=== PATIENT | female | born 1945 | race Caucasian/White ===

== ENCOUNTER 2016-10-07 12:37 | Emergency (ER) | payer MEDICARE, BC ==
[2016-10-07 13:11] LABS: Hematocrit 37.3 % (37.0-47.0); Hemoglobin 12.6 gm/dL (12.5-16.0); Mean Cell Volume 87.4 fl (78-100); Mean Corpuscular Hemoglobin 29.5 pg (27-31); Mean Corpuscular Hgb Conc 33.8 g/dl (32-36); Mean Platelet Volume 9.9 fl (6.0-9.5); Neutrophil # 2.1 K/mm3 (1.3-6.0); Neutrophil % 59.5 % (42-75.0); Platelet Count 192 K/mm3 (150-450); Red Blood Count 4.27 M/mm3 (4.2-5.4); Red Cell Distribution Width 13.6 % (11.5-14.0); White Blood Count 3.5 K/mm3 (4.0-10.5)
[2016-10-07 13:23] LABS: Albumin * 3.9 gm/dl (3.4-5.0); Anion Gap 16.8 mmol/L (6.8-13.8); BUN/Creatinine Ratio 21.8 (9.0-21.6); Bilirubin, Total 0.3 mg/dL (0.0-1.1); Ca. Corrected For Albumin 8.8 mg/dL (8.4-10.2); Carbon Dioxide 23.3 mmol/L (24-32.6); Potassium 4.1 mmol/L (3.4-4.6); Total Protein 7.7 gm/dL (6.2-8.2)
[2016-10-07] MEDS ORDERED: NORMAL SALINE 1,000 ML IV ONE (13:47)
[2016-10-07 13:57] VITALS: BP 143/83
--- OUTSIDE RECORDS SUMMARY | 2016-10-07 13:57 | XMS REPORT | Continuity of Care Document ---
:1945 Author Organization [facility] [place] [address] Care Team Providers Name Role Phone Mirian Castro Primary Care Provider [phone] Source Comments This disclosure is being made pursuant to the [employer] program and maynot contain all information available regarding this patient.[facility] Active Allergies and Adverse Reactions Allergen Noted Date Severity Reactions Comments Iodinated Diagnostic Agents 07/19/2014 Other (See Comments) Metronidazole 07/19/2014 Other (See Comments) Penicillins 07/19/2014 Other (See Comments) Sulfa Antibiotics 07/19/2014 Other (See Comments) Current Medications Be aware that medications may not be up to date as of this document. Alwaysverify current medications with the patient. Prescription Sig. Disp. Refills Start Date End Date Status ALPRAZolam (XANAX) 0.5 MG Take 0.5 mg by Active tablet mouth. amLODIPine (NORVASC) 5 MG Take 5 mg by Active tablet mouth. diphenoxylate-atropine Take by mouth. 01/18/2014 Active (LOMOTIL) 2.5-0.025 MG per tablet ferrous sulfate 325 (65 Take by mouth. Active FE) MG tablet fluticasone-salmeterol Inhale into the Active (ADVAIR DISKUS) 250-50 lungs. MCG/DOSE AEPB Levothyroxine Sodium 75 Take 75 mcg by Active MCG CAPS mouth. losartan (COZAAR) 25 MG Take 25 mg by Active tablet mouth. naproxen (NAPROSYN) 500 MG Take 500 mg by Active tablet mouth. OMEGA-3 FATTY Take by mouth. Active ACIDS-VITAMIN E PO omeprazole (PRILOSEC) 20 Take 20 mg by Active MG capsule mouth. pioglitazone (ACTOS) 15 MG Take 15 mg by Active tablet mouth. risedronate (ACTONEL) 35 Take 35 mg by Active MG tablet mouth. rosuvastatin (CRESTOR) 10 Take 10 mg by Active MG tablet mouth. zolpidem (AMBIEN) 10 MG Take 10 mg by 02/02/2010 Active tablet mouth. Active Problems Problem Noted Date History of malignant neoplasm of kidney 09/22/2015 Acquired absence of kidney 09/22/2015 Diarrhea 08/08/2014 Stress 08/08/2014 Anxiety 08/08/2014 Most Recent Encounters Date Type Specialty Providers Description 07/18/2016 Data Import Social History Tobacco Use Types Packs/Day Years Used Date Never Assessed Last Filed Vital Signs Vital Sign Reading Time Taken Blood Pressure 151/89 05/21/2016 11:23 AM CDT Pulse 67 05/21/2016 11:22 AM CDT Temperature 37.1 C (98.7 F) 05/21/2016 11:22 AM CDT Respiratory Rate 20 05/21/2016 11:22 AM CDT Height 1.632 m (5' 4.25") 11/16/2015 11:00 AM CDT Weight 108.92 kg (240 lb 2 oz) 05/21/2016 11:22 AM CDT Body Mass Index 40.89 05/21/2016 11:22 AM CDT Oxygen Saturation 99% 05/21/2016 11:22 AM CDT Plan of Care Date Type Specialty Providers Description 11/12/2016 Appointment Radiology Pietro Garza MD [facility] [address] [phone] (Fax) 11/19/2016 Appointment Oncology 11/19/2016 Appointment Oncology Pietro Garza MD [facility] [address] [phone] (Fax) Health Maintenance Due Date Last Done Comments Lab-Lipids 1945 LAB-HgA1C 1951 Eye (Ophthalmology) Exam 1956 Foot Exam 1956 Lab-Urine Microalbumin 1956 Hepatitis C Screening 1964 Tetanus/Pertussis (1 - Tdap) 1965 Well Adult Visit 1996 Zoster Vaccine 60+ 2006 Bone Density 2011 Pneumococcal Low/Medium Risk 65+ (1 of 2 - PCV13) 2011 Influenza Immunization (#1) 2016 Mammogram 06/14/2017 06/14/2015 Colonoscopy 05/08/2019 05/08/2009 Results from Last 3 Months Not on file
[2016-10-07] MEDS ORDERED: METHYLPREDNISOLONE SOD SUCC/PF 125 MG/2 ML VIAL IV ONE (14:11)
[2016-10-07] MEDS ORDERED: DOXYCYCLINE HYCLATE 100 MG TABLET PO ONE (14:12)
[2016-10-07] MEDS ORDERED: METHYLPREDNISOLONE SOD SUCC/PF 125 MG/2 ML VIAL ONE (14:29)
[2016-10-07] MEDS ORDERED: DOXYCYCLINE HYCLATE 100 MG TABLET ONE (14:30)
--- NOTE | 2016-10-07 14:56 | ERNOTE ---
Date of Service: 10/07/16 Time Seen by Provider: 10/07/16 13:16 Stated Complaint: PNEUMONIA Presenting Symptoms:: cough Source: patient, RN notes reviewed Exam Limitations: no limitations Immunizations: IMMUNIZATION HX Immunizations Up to Date Yes History of Influenza Vaccine Yes Hx Pneumococcal Vaccination No Allergies/Adverse Reactions: Allergies Iodinated Contrast Media - Oral and [Iodinated Contrast Media - IV Dye] Allergy (Mild, Verified 10/07/16 12:57) HIVES, SKIN PEELS metronidazole [From Flagyl] Adverse Reaction (Mild, Verified 10/07/16 12:57) RASH nitrofurantoin Adverse Reaction (Mild, Verified 10/07/16 12:57) NAUSEA, DIARRHEA, CHILLS Penicillins Adverse Reaction (Mild, Verified 10/07/16 12:57) RASH Sulfa (Sulfonamide Antibiotics) Adverse Reaction (Mild, Verified 10/07/16 12:57) RASH Home Medications: HOME MEDICATIONS Ferrous Sulfate [Iron] 325 mg PO DAILY 01/18/13 [Last Taken Unknown] Pioglitazone HCl [Actos] 15 mg PO DAILY 01/18/13 [Last Taken Unknown] Rosuvastatin Calcium [Crestor] 10 mg PO DAILY 01/18/13 [Last Taken Unknown] ALPRAZolam [Xanax] 0.5 mg PO TID PRN 06/23/15 [Last Taken Unknown] Diphenoxylate HCl/Atropine [Lomotil Tablet] 2 each PO DAILY 06/23/15 [Last Taken Unknown] Fluticasone/Salmeterol [Advair 250-50 Diskus] 1 puff IH BID 06/23/15 [Last Taken Unknown] Levothyroxine Sodium [Synthroid] 88 mcg PO DAILY 06/23/15 [Last Taken Unknown] Losartan Potassium [Cozaar] 25 mg PO DAILY 06/23/15 [Last Taken Unknown] Naproxen [Naprosyn] 500 mg PO BID 06/23/15 [Last Taken Unknown] [place]-3 Fatty Acids/Fish Oil [Fish Oil 1,000 mg Capsule] 1 each PO DAILY [Last Taken Unknown] Omeprazole Magnesium [Prilosec Otc] 20 mg PO DAILY 06/23/15 [Last Taken Unknown] Zolpidem Tartrate [Ambien] 10 mg PO HS 06/23/15 [Last Taken Unknown] HYDROcodone/ACETAMINOPHEN [[place] 5-325] 1 tab PO Q4H PRN 07/07/15 [Last Taken Unknown] Multivitamin [Poly-Vitamin] 1 each PO DAILY 07/07/15 [Last Taken Unknown] Albuterol Sulfate/Ipratropium [Duoneb 2.5-0.5MG/3ML Soln] 3 ml IH Q6H PRN #60 nebu 10/07/16 [Last Taken Unknown] Doxycycline Monohydrate 100 mg PO BID #20 tablet 10/07/16 [Last Taken Unknown] Promethazine HCl/Codeine [Prometh-Codein 6.25-10 mg/5 ml] 5 ml PO Q4H PRN #120 ml 10/07/16 [Last Taken Unknown] predniSONE [Prednisone] 2 tab PO DAILY #14 tab 10/07/16 [Last Taken Unknown] - History of Present Ilness Narrative: 71 y/o female to the ED with her by private vehicle for a cough and chest tightness that began 4 days ago. She began feeling worse this morning and reports feeling weak and shaky. She has had sinus congestion and pain. She reports being unable to sleep d/t her cough. She did a Duoneb treatment this morning without improvement. Date (Duration): 10/03/16 Timing: getting worse Frequency/Possible Cause: Reports: illness exposure Modifying Factors - Improves: Reports: rest Modifying Factors - Worsens: Reports: activity, lying down Associated Symptoms: Reports: chest pain/soreness, cough, shortness of breath, facial pain, nasal congestion, nasal drainage, lightheadedness, earache, headache. Denies: dizziness, sore throat Prior Treatment: Denies: recently seen, currently on antibiotics Review of Systems - Review of Systems Constitutional: Present: chills, fatigue, malaise. Absent: fever EYE: Present: no symptoms reported ENT: Present: See HPI Respiratory: Present: See HPI Cardiology: Present: See HPI Gastrointestinal/Abdominal: Present: diarrhea. Absent: nausea, vomiting, abdominal pain, eating less, drinking less Genitourinary: Present: no symptoms reported Musculoskeletal: Absent: muscle pain, joint pain Skin: Absent: rash, lesions Neurological: Present: See HPI Endocrine: Present: no symptoms reported Hematologic/Lymphatic: Present: no symptoms reported Psych: Present: anxiety - Patient's Past Medical History Patient History - Medical: Diabetes Type 2, Hypothyroidism, Osteoarthritis, Osteoporosis, Other Patient History - Cardiac/Respiratory: Asthma, Hypertension, Hyperlipidemia Patient History - Cancer: Kidney Patient History - Surgical Procedures: Colonoscopy, Hysterectomy, Other Patient History - Other: None LMP (females 10-50): Menopausal - Family History Mother Family History - Medical: Family History - Cardiac/Respiratory: Other Father Family History - Medical: Family History - Cardiac/Respiratory: Myocardial Infarction Brother Family History - Medical: Family History - Cardiac/Respiratory: No pertinent hx Sister Family History - Medical: No pertinent hx Family History - Cardiac/Respiratory: No pertinent hx - Social History Living Situations: spouse Abuse History: No History of abuse Psych History: Hx of Anxiety, Current tx/ever been on anti-depressants or anti- anxiety meds Smoking Status: Never smoker Alcohol Use: none Drug Use: none - Immunizations Immunizations Up to Date: Yes Hx Pneumococcal Vaccination: No History of Influenza Vaccine: Yes Physical Exam - Physical Exam General Appearance: Present: wd/wn, alert, mild distress, anxious Eye Exam: Normal inspection: bilateral Ears, Nose, Throat: Present: abnormal TM (R), abnormal TM (L) - TM's dull bilaterally, nasal congestion, sinus pain/drainage. Absent: pharyngeal erythema , dry mucous membranes Neck: Present: normal inspection, nontender, supple Respiratory: Present: no respiratory distress, lungs clear, accessory muscle use - mild, expiration (prolonged) Cardiovascular/Chest: Present: regular rate, rhythm, no murmur, normal peripheral pulses Extremity Exam: Present: normal inspection, no edema Neurological Exam: Present: alert, oriented, normal mood/affect Skin Exam: Present: normal color, warm/dry ED Progress - Results and Orders Patient's Lab Results:: I have reviewed the patient's lab results. - Vital Signs Patient's Vital Signs:: I have reviewed the patient's vital signs. Vital Signs: Vital Signs 10/07/16 10/07/16 12:53 13:56 Temperature 37.0 C Pulse Rate 78 95 Respiratory 20 18 Rate Blood Pressure 154/83 143/83 O2 Sat by Pulse 97 95 Oximetry - X-Ray X-Ray #1 X-Ray: chest Interpretation: Reviewed by me X-ray Comments: FINDINGS: Chest PA Lateral * Calcified granuloma of the left lower lobe, stable. Normal lung volumes. No consolidation or mass. Mild central bronchial wall prominence suggested. No pneumothorax or pleural fluid collections. Cardiac and mediastinal silhouettes are normal. Trachea is in normal position. Bones show degenerative changes of the spine. IMPRESSION: 1. No focal acute cardiopulmonary finding. 2. Central bronchial wall prominence could be compatible with acute or chronic bronchitis or reactive airways disease. Clinical correlation is advised. Electronically signed by Javon Bradford M.D.. - Progress/Reassessment Chief Complaint: Upper Respiratory Symptoms Progress:: Improved Departure - Departure Clinical Impression: Dehydration, mild Sinusitis, acute Qualifiers: Sinusitis location: unspecified location Recurrence: not specified as recurrent Qualified Code(s): J01.90 - Acute sinusitis, unspecified Bronchitis, acute Qualifiers: Bronchitis organism: unspecified organism Qualified Code(s): J20.9 - Acute bronchitis, unspecified Disposition: Home self-care Condition: Stable Instructions: Sinusitis, Adult, [id number], Acute Bronchitis Referrals: Mirian Castro MD [Primary Care Provider] - Prescriptions: Albuterol Sulfate/Ipratropium [Duoneb 2.5-0.5MG/3ML Soln] 3 ml IH Q6H PRN #60 nebu PRN Reason: Wheezing Doxycycline Monohydrate 100 mg PO BID #20 tablet Promethazine HCl/Codeine [Prometh-Codein 6.25-10 mg/5 ml] 5 ml PO Q4H PRN #120 ml PRN Reason: Cough predniSONE [Prednisone] 2 tab PO DAILY #14 tab
== END 2016-10-07 15:27 | disposition home or self-care (01) ==
LOC: ER 12:37
DX: R05 Cough (principal); E86.0 Dehydration; J01.90 Acute sinusitis, unspecified; J20.9 Acute bronchitis, unspecified; Z85.528 Personal history of other malignant neoplasm of kidney

== ENCOUNTER 2018-06-08 11:17 | Observation (INO) | payer BC, MEDICARE ==
--- NOTE | 2018-06-08 11:38 | ERNOTE ---
Date of Service: 06/08/18 Time Seen by Provider: 06/08/18 11:38 Stated Complaint: URI Presenting Symptoms:: cough Source: patient Exam Limitations: no limitations Immunizations: IMMUNIZATION HX Immunizations Up to Date Yes History of Influenza Vaccine No Hx Pneumococcal Vaccination No Allergies/Adverse Reactions: Allergies alendronate sodium Allergy (Intermediate, Verified 06/08/18 11:27) swelling of the body Iodinated Contrast- Oral and IV Dye [Iodinated Contrast Media - IV Dye] Allergy (Mild, Verified 06/08/18 11:27) HIVES, SKIN PEELS shellfish derived Allergy (Unknown, Verified 06/08/18 11:27) Hives metronidazole [From Flagyl] Adverse Reaction (Mild, Verified 06/08/18 11:27) RASH nitrofurantoin Adverse Reaction (Mild, Verified 06/08/18 11:27) NAUSEA, DIARRHEA, CHILLS 07/2013 Penicillins Adverse Reaction (Mild, Verified 06/08/18 11:27) RASH Sulfa (Sulfonamide Antibiotics) Adverse Reaction (Mild, Verified 06/08/18 11:27) RASH tramadol Adverse Reaction (Unknown, Verified 06/08/18 11:27) hives Home Medications: HOME MEDICATIONS Ferrous Sulfate [Iron] 325 mg PO DAILY 01/18/13 [Last Taken Unknown] ALPRAZolam [Xanax] 0.5 mg PO TID PRN 06/23/15 [Last Taken Unknown] Levothyroxine Sodium [Synthroid] 88 mcg PO DAILY 06/23/15 [Last Taken Unknown] Losartan Potassium [Cozaar] 25 mg PO DAILY 06/23/15 [Last Taken Unknown] [place]-3 Fatty Acids/Fish Oil [Fish Oil 1,000 mg Capsule] 1 ea PO DAILY 06/23/15 [Last Taken Unknown] Albuterol Sulfate/Ipratropium [Duoneb 2.5-0.5MG/3ML Soln] 3 ml IH Q6H PRN #60 nebu 10/07/16 [Last Taken Unknown] blood sugar diagnostic strips See Dose Instructions .ROUTE .MEDSUPPLY #20 ea 02/06/18 [Last Taken Unknown] cholecalciferol (vitamin D3) 1,000 unit capsule 1,000 unit PO DAILY 02/06/18 [Last Taken Unknown] halobetasol propionate 0.05 % topical cream 1 applic TP BID 02/06/18 [Last Taken Unknown] mometasone-formoterol HFA 200 mcg-5 mcg/actuation aerosol inhaler 2 puff IH BID 02/06/18 [Last Taken Unknown] simvastatin 20 mg tablet 20 mg PO QPM 02/06/18 [Last Taken Unknown] naproxen 500 mg tablet 500 mg PO BID #60 tab 03/17/18 [Last Taken Unknown] zolpidem 10 mg tablet 10 mg PO HS #30 tab 03/17/18 [Last Taken Unknown] loperamide 2 mg capsule 2 mg PO Q1-4H PRN 04/02/18 [Last Taken Unknown] albuterol sulfate HFA 90 mcg/actuation aerosol inhaler 2 puff IH Q6H PRN #18 g 04/28/18 [Last Taken Unknown] - Pain Score Pain Score #1 Pain Score: 0 - History of Present Ilness Narrative: The patient is a 73 year old female who presents for dyspnea and cough which has been present since end of April. There are associated symptoms of fatigue, chills and vomiting. The patient denies pain. There are no alleviating factors. There are aggravating factors of activity. Previous treatments have included: recent treatment with Prednisone, azithromycin, inhaler and nebulizers without improvement . The past medical history includes: asthma, DM, HTN, hypothyroid, osteoarthritis, DJD and renal carcinoma with nephrectomy. The social history is negative. The patient has had no ill contacts. Patient states that she was previously evaluated in [facility] and treated with antibiotics and steroids without improvement. Patient had follow up appointment with with outpatient CXR which she was notified today was normal. Patient denies improvement following treatment and feels that something else is going on. Patient also reports hematoma vs mass to left upper extremity which she feels has increased due to level of discomfort. Patient awaiting follow up of MRI, managed by . Review of Systems - Review of Systems Constitutional: Present: fever, chills, fatigue EYE: Present: no symptoms reported ENT: Present: nose congestion, nasal drainage. Absent: ear pain, sore throat Respiratory: Present: shortness of breath, cough. Absent: wheezing Cardiology: Absent: chest pain Gastrointestinal/Abdominal: Present: nausea, vomiting, diarrhea. Absent: ab dominal pain Genitourinary: Present: no symptoms reported. Absent: dysuria Musculoskeletal: Present: back pain - chronic Skin: Present: no symptoms reported Neurological: Present: dizziness/light-headedness. Absent: headache Endocrine: Present: no symptoms reported Hematologic/Lymphatic: Present: no symptoms reported Psych: Present: no symptoms reported All Other Systems: All systems neg except as marked Medical History (Last Reviewed 06/08/18 @ 12:06 by GREGG Michaels) DJD (degenerative joint disease) of knee Onset Date: ~2017 Elbow pain Onset Date: ~2017 Asthma Onset Date: Unknown Chronic otitis externa Onset Date: Unknown Diabetes mellitus Onset Date: Unknown Essential hypertension Onset Date: Unknown Hypercholesteremia Onset Date: Unknown Hypothyroidism Onset Date: Unknown Irritable bowel syndrome Onset Date: Unknown Osteoarthritis Onset Date: Unknown Osteoporosis Onset Date: Unknown Injury of meniscus of knee Onset Date: Unknown Malignant neoplasm of kidney Onset Date: 07/2008 Urinary tract infection Onset Date: 02/11/13 05/27/2009 Surgical History: Surgical History (Last Reviewed 06/08/18 @ 12:06 by GREGG Michaels) Abnormal colonoscopy Onset Date: 07/07/15 Tinguely scattered diverticulosis H/O arthroscopic knee surgery Onset Date: 04/23/06 History of nephrectomy Onset Date: 07/11/08 History of total abdominal hysterectomy and bilateral salpingo-oophorectomy Onset Date: 1972 History of tympanoplasty Onset Date: 09/2000 Family History: Family History (Last Reviewed 06/08/18 @ 12:06 by GREGG Michaels) Brother Cancer renal aged 68 Father Myocardial infarction aged 59 Mother Hypertension Supranuclear palsy Sister Cancer renal Social History: Preferred Language [place] Smoking Status Never smoker Abuse History No History of abuse Psych History Hx of Anxiety,Currently on Meds Alcohol Use none Drug Use none (Last Updated 06/03/18 @ 11:47 by Mirian Castro MD) No Social History Section defined Physical Exam - Physical Exam General Appearance: Present: wd/wn, alert, mild distress, obese Head Exam: Present: normal inspection Eye Exam: Normal inspection: bilateral, PERRL: bilateral, EOMI: bilateral Ears, Nose, Throat: Present: normal ENT inspection, normal pharynx Neck: Present: normal inspection, nontender Respiratory: Present: no respiratory distress, no accessory muscle use, decreased breath sounds Cardiovascular/Chest: Present: regular rate, rhythm, no murmur Peripheral Pulses: N=norm/S=strong/W=weak/B=bound/A=absent: Radial (L): Normal Gastrointestinal/Abdominal: Present: normal bowel sounds, nondistended, soft, no organomegaly, tenderness - RUQ Back Exam: Present: no CVA tenderness Extremity Exam: Present: bony tenderness - left distal to mid humerus, extremity edema - left tricep Neurological Exam: Present: alert, oriented, normal mood/affect, no motor/sensory deficits Skin Exam: Present: warm/dry, pallor ED Progress - Date and Time Seen: Date and Time: 06/08/18 1230: Discussed care with case management regarding observation admission for dyspnea and elevated D-Dimer. Discussed with and patient will be admitted for observation care with NM VQ scan in am. 06/08/18 13:19 Discussed with and patient was instructed to follow up with oncology for MRI of left upper extremity. - Results and Orders Patient's Lab Results:: I have reviewed the patient's lab results. - Vital Signs Patient's Vital Signs:: I have reviewed the patient's vital signs. Vital Signs: Vital Signs 06/08/18 11:22 Temperature 36.7 C Pulse Rate 91 Respiratory Rate 12 Blood Pressure 157/77 H O2 Sat by Pulse Oximetry 100 - EKG EKG: NSR EKG read: Reviewed by me - X-Ray X-Ray #1 X-Ray: chest Interpretation: Reviewed by me X-ray Comments: X-RAY REPORT ~[id number] RAD/Chest PA & Lateral *~ Exam Date: 06/08/2018 11:59 Ordering Physician: Mary Johnson HISTORY: dyspnea. Additional history from technologist: bronchitis, since sept, weak, shaking TECHNIQUE: PA and lateral views of the chest were obtained. 2 images. COMPARISONS: 06/03/2018, 10/07/2016, 06/13/2010 FINDINGS: Chest PA Lateral * Normal lung volumes. No consolidation or mass. Left lung field calcified granuloma, stable. No significant vascular congestion suggested. No pneumothorax or pleural fluid collections. Cardiac silhouette within normal limits. Mild tortuosity of the thoracic aorta noted, with overlying atherosclerotic vascular calcifications. Overall stable. Trachea is in normal position. Bones show degenerative changes of the spine. IMPRESSION: 1. No focal acute cardiopulmonary finding. 2. Stable findings are as above. Electronically signed by Javon Bradford M.D.. - Progress/Reassessment Chief Complaint: Upper Respiratory Symptoms Departure Clinical Impression: Weakness, Nausea, Elevated d-dimer Dyspnea Qualifiers: Dyspnea type: shortness of breath Qualified Code(s): R06.02 - Shortness of breath - Departure Disposition: Still a patient Condition: Stable
[2018-06-08 12:09] LABS: Hematocrit 32.5 % (37.0-47.0); Hemoglobin 10.2 gm/dL (12.5-16.0); Mean Cell Volume 83.1 fl (78-100); Mean Corpuscular Hemoglobin 26.1 pg (27-31); Mean Corpuscular Hgb Conc 31.4 g/dl (32-36); Mean Platelet Volume 9.2 fl (8-12.5); Neutrophil # 7.1 K/mm3 (1.3-6.0); Platelet Count 477 K/mm3 (150-450); Red Blood Count 3.91 M/mm3 (4.2-5.4); Red Cell Distribution Width 15.8 % (11.5-14.0); White Blood Count 9.7 K/mm3 (4.0-10.5)
[2018-06-08 12:21] LABS: Albumin * 2.5 gm/dl (3.4-5.0); Anion Gap 15.1 mmol/L (6.8-13.8); BUN/Creatinine Ratio 10.9 (9.0-21.6); Bilirubin, Total 0.4 mg/dL (0.0-1.1); Ca. Corrected For Albumin 12.3 mg/dL (8.4-10.2); Calcium * 11.4 mg/dL (7.9-10.9); Carbon Dioxide 25.2 mmol/L (24-32.6); Potassium 4.3 mmol/L (3.4-4.6); Total Protein 7.7 gm/dL (6.2-8.2)
[2018-06-08 12:26] LABS: Urine Bilirubin Negative (NEGATIVE); Urine Blood 50 /ul (NEGATIVE); Urine Ketone Negative (NEGATIVE); Urine Nitrite Negative (NEGATIVE); Urine Protein Negative (NEGATIVE); Urine Urobilinogen Normal (NORMAL)
[2018-06-08 12:35] LABS: Urine Appearance Slightly Cloudy (CLEAR); Urine Color Dark Yellow; Urine RBC TRACE /hpf (0-5)
[2018-06-08 12:36] LABS: Urine Bacteria TRACE
[2018-06-08 13:08] LABS: CRP 17.4 mg/dL (0.0-0.9)
[2018-06-08] MEDS ORDERED: ZOLPIDEM TARTRATE 10 MG TABLET PO PRN (19:55)
[2018-06-08] MEDS ORDERED: FLUTICASONE/SALMETEROL 14 PUFF DISK.W.DEV IH PRN (19:55)
[2018-06-08] MEDS ORDERED: BLOOD SUGAR DIAGNOSTIC 1 EACH STRIP MC PRN (19:55)
[2018-06-08] MEDS ORDERED: NAPROXEN 500 MG TABLET PO PRN (19:55)
[2018-06-08] MEDS ORDERED: ALBUTEROL SULFATE/IPRATROPIUM 3 ML NEBU IH PRN (19:55)
[2018-06-08] MEDS ORDERED: ALPRAZolam 0.5 MG TABLET PO PRN (19:55)
--- NOTE | 2018-06-08 20:29 | HP ---
Chief Complaint - Chief Complaint Date of Service: 06/08/18 Time of Service: 20:11 Chief Complaint: food getting stuck in the exophagus, painful mass L. arm, bronchitis. History of Present Illness: Mary Kaplan is a 73-year-old female who is admitted with chief complaint of coughing, shortness of breath, vomiting of food, and a painful swollen hot to touch mass on the left posterior arm above the olecranon process. She has had recurring problems with swallowing and getting stuff and then she vomits and usually about midnight vomits a lot of mucus. She has lost about 23 pounds since this started. She has not had any endoscopy done. She denies chest pain when this happens but nothing will go through until she throws it up. She also has been coughing up more mucus and at times it has a greenish color and foul taste. She was prescribed an antibiotic this morning but came to the hospital before picking it up so she has not started any antibiotics. She had a chest x-ray done last Friday but didn't get results until this morning because reportedly they weren't available. At any rate there is no pneumonia on the chest x-ray. Clinically she has acute on chronic bronchitis. The mass in the left posterior arm is above the olecranon but may include the olecranon bursa. This started in December, 6 months ago, when she was lifting some 3 pound weights and felt something tear. She then help her put in some ceiling tile and further injured the arm and is never healed since that time. She has had a couple of CAT scans done but the diagnosis has remained elusive. Ultrasound was nonrevealing. An MRI has been recommended but not performed. She has seen Dr. Benites and he thought she needed to see an oncologist because of her previous history of cancer. Medical History (Last Reviewed 06/08/18 @ 14:25 by Crystal Ku RN) DJD (degenerative joint disease) of knee Onset Date: ~2017 Elbow pain Onset Date: ~2017 Asthma Onset Date: Unknown Chronic otitis externa Onset Date: Unknown Diabetes mellitus Onset Date: Unknown Essential hypertension Onset Date: Unknown Hypercholesteremia Onset Date: Unknown Hypothyroidism Onset Date: Unknown Irritable bowel syndrome Onset Date: Unknown Osteoarthritis Onset Date: Unknown Osteoporosis Onset Date: Unknown Injury of meniscus of knee Onset Date: Unknown Malignant neoplasm of kidney Onset Date: 07/2008 Urinary tract infection Onset Date: 02/11/13 05/27/2009 Surgical History: Surgical History (Last Reviewed 06/08/18 @ 14:25 by Crystal Ku RN) Abnormal colonoscopy Onset Date: 07/07/15 Tinguely scattered diverticulosis H/O arthroscopic knee surgery Onset Date: 04/23/06 History of nephrectomy Onset Date: 07/11/08 History of total abdominal hysterectomy and bilateral salpingo-oophorectomy Onset Date: 1972 History of tympanoplasty Onset Date: 09/2000 Family History: Family History (Last Reviewed 06/08/18 @ 14:25 by Crystal Ku RN) Brother Cancer renal aged 68 Father Myocardial infarction aged 59 Mother Hypertension Supranuclear palsy Sister Cancer renal Social History: Patient Lives/Resources With Spouse Utilized Preferred Language Dutch Do you have any anabaptist or Yes: Gnosticism cultural preference? Smoking Status Never smoker Have you smoked in the past 12 No months Abuse History No History of abuse Psych History Hx of Anxiety,Currently on Meds Alcohol Use none Drug Use none (Last Updated 06/03/18 @ 11:47 by Mirian Castro MD) No Social History Section defined Review Of Systems (GEN) - Review of Systems Generalized/Overall Review: Present: Malaise, Fatigue, Weight loss. Absent: Chills, Fever EENTM: Present: No Symptoms Reported Respiratory: Present: Cough, Shortness of Breath. Absent: Orthopnea, Stridor, Wheezing Cardiac: Present: Edema. Absent: Chest Pain, Palpitations, Syncope Abdominal: Present: Other - Vomiting without nausea. Esophageal blockage causing intermittent vomiting. Genitourinary: Present: No Symptoms Reported Musculoskeletal: Present: Other - Soft tissue mass that is slightly discolored, hot to touch, and tender to palpate on the left posterior arm above and including the olecranon bursa. Neurological: Present: No Symptoms Reported. Absent: Pre-existing Deficit Skin: Present: No Symptoms Reported Endocrine: Present: No Symptoms Reported Immunizations: IMMUNIZATION HX Immunizations Up to Date Yes History of Influenza Vaccine No Hx Pneumococcal Vaccination No Allergies/Adverse Reactions: Allergies Allergy/AdvReac Type Severity Reaction Status Date / Time alendronate sodium Allergy Intermediate swelling Verified 06/08/18 14:25 of the body Iodinated Contrast- Oral and Allergy Mild HIVES, Verified 06/08/18 14:25 IV Dye SKIN PEELS [Iodinated Contrast Media - IV Dye] shellfish derived Allergy Unknown Hives Verified 06/08/18 14:25 metronidazole [From Flagyl] AdvReac Mild RASH Verified 06/08/18 14:25 nitrofurantoin AdvReac Mild NAUSEA, Verified 06/08/18 14:25 DIARRHEA, CHILLS 07/2013 Penicillins AdvReac Mild RASH Verified 06/08/18 14:25 Sulfa (Sulfonamide AdvReac Mild RASH Verified 06/08/18 14:25 Antibiotics) tramadol AdvReac Unknown hives Verified 06/08/18 14:25 Home Medications: HOME MEDICATIONS Ferrous Sulfate [Iron] 325 mg PO DAILY 01/18/13 [Last Taken Unknown] ALPRAZolam [Xanax] 0.5 mg PO TID PRN 06/23/15 [Last Taken Unknown] Levothyroxine Sodium [Synthroid] 88 mcg PO DAILY 06/23/15 [Last Taken 06/08/18] Losartan Potassium [Cozaar] 25 mg PO DAILY 06/23/15 [Last Taken 06/07/18] [place]-3 Fatty Acids/Fish Oil [Fish Oil 1,000 mg Capsule] 1 ea PO DAILY 06/23/15 [Last Taken Unknown] Albuterol Sulfate/Ipratropium [Duoneb 2.5-0.5MG/3ML Soln] 3 ml IH Q6H PRN #60 nebu 10/07/16 [Last Taken Unknown] cholecalciferol (vitamin D3) 1,000 unit capsule 1,000 unit PO DAILY 02/06/18 [Last Taken Unknown] halobetasol propionate 0.05 % topical cream 1 applic TP BID 02/06/18 [Last Taken Unknown] simvastatin 20 mg tablet 20 mg PO QPM 02/06/18 [Last Taken 06/07/18] albuterol sulfate HFA 90 mcg/actuation aerosol inhaler 2 puff IH Q6H PRN #18 g 04/28/18 [Last Taken 06/08/18] Blood Sugar Diagnostic [Blood Glucose Test] 1 each PRN PRN 06/08/18 [Last Taken Unknown] Fluticasone/Salmeterol [Advair 250-50 Diskus] 1 each IH PRN PRN 06/08/18 [Last Taken 06/08/18] Multivitamin [Poly-Vitamin] 1 each PO DAILY 06/08/18 [Last Taken Unknown] Naproxen [Naprosyn] 500 mg PO BID PRN 06/08/18 [Last Taken Unknown] Pioglitazone HCl 15 mg PO DAILY 06/08/18 [Last Taken 06/07/18] Zolpidem Tartrate [Ambien] 10 mg PO HS PRN 06/08/18 [Last Taken Unknown] Exam - Exam Vital Signs: Vital Signs - Last Taken Temp 36.7 C 06/08/18 18:54 Pulse 84 06/08/18 18:54 Resp 16 06/08/18 18:54 BP 90/55 06/08/18 18:54 Pulse Ox 99 06/08/18 18:54 Constitutional: Present: Alert, Oriented x3, Cooperative, Well developed, Well nourished, Mild distress, Elderly ENT Exam: Present: normal ENT inspection, hearing grossly normal, pharynx normal, TMs normal Eye Exam: bilateral eye: normal inspection, PERRL, EOMI Neck: Present: non-tender, full range of motion, supple, normal inspection, trachea midline Back Exam: Present: normal inspection, no CVA tenderness, no vertebral tenderness Breasts: Present: Exam deferred Respiratory: Present: chest non-tender, normal breath sounds, no respiratory d istress. Absent: accessory muscle use, crackles, rales, rhonchi, stridor, wheezing, expiration (prolonged) Cardiovascular/Chest: Present: normal peripheral pulses, regular rate, rhythm, no chest tenderness, no edema, no gallop, no JVD, no murmur, no rub Peripheral Pulses: carotid (R): 2+, carotid (L): 2+ Abdomen: Present: Normal bowel sounds, soft, nontender, nondistended, no rebound tenderness, no hepatospenomegaly, no masses, obese, negative Ag sign. Absent: tender, mass palpable, distended /Rectal: Present: Exam deferred Extremity: Present: normal range of motion, non-tender - Except for the left posterior arm. See above for description. 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 Absent: auditory hallucinations, delusions Diagnostic Studies: Abnormal Lab Results 06/08/18 06/08/18 06/08/18 Range/Units 12:05 12:05 12:05 RBC 3.91 L (4.2-5.4) M/mm3 Hgb 10.2 L (12.5-16.0) gm/dL Hct 32.5 L (37.0-47.0) % MCH 26.1 L (27-31) pg MCHC 31.4 L (32-36) g/dl RDW 15.8 H (11.5-14.0) % Plt Count 477 H (150-450) K/mm3 Immature Gran % (Auto) 0.50 H (0.001-0.429) % Immature Gran # (Auto) 0.05 H (0.000-0.0310) K/mm3 Lymphocytes % 12.9 L (20-51) % Monocytes % 12.7 H (0.0-9) % Neutrophils # 7.1 H (1.3-6.0) K/mm3 Lymphocytes # 1.26 L (1.5-3.5) k/mm3 Monocytes # 1.2 H (0.0-1.0) k/mm3 D-Dimer 1.35 H (0.19-0.49) ug/mL Anion Gap 15.1 H (6.8-13.8) mmol/L Est GFR (Non-Af Amer) 47 L (60-130) mL/min Random Glucose 189 H (70-110) mg/dL Calcium 11.4 H (7.9-10.9) mg/dL Calcium Adj for Albumin 12.3 H (8.4-10.2) mg/dL Alkaline Phosphatase 207 H (50-170) U/L C-Reactive Prot, Quant 17.4 H (0.0-0.9) mg/dL Albumin 2.5 L (3.4-5.0) gm/dl Urine Blood (NEGATIVE) /ul Ur Leukocyte Esterase (NEGATIVE) /ul Urine WBC (0-5) /hpf 06/08/18 Range/Units 12:15 RBC (4.2-5.4) M/mm3 Hgb (12.5-16.0) gm/dL Hct (37.0-47.0) % MCH (27-31) pg MCHC (32-36) g/dl RDW (11.5-14.0) % Plt Count (150-450) K/mm3 Immature Gran % (Auto) (0.001-0.429) % Immature Gran # (Auto) (0.000-0.0310) K/mm3 Lymphocytes % (20-51) % Monocytes % (0.0-9) % Neutrophils # (1.3-6.0) K/mm3 Lymphocytes # (1.5-3.5) k/mm3 Monocytes # (0.0-1.0) k/mm3 D-Dimer (0.19-0.49) ug/mL Anion Gap (6.8-13.8) mmol/L Est GFR (Non-Af Amer) (60-130) mL/min Random Glucose (70-110) mg/dL Calcium (7.9-10.9) mg/dL Calcium Adj for Albumin (8.4-10.2) mg/dL Alkaline Phosphatase (50-170) U/L C-Reactive Prot, Quant (0.0-0.9) mg/dL Albumin (3.4-5.0) gm/dl Urine Blood 50 H (NEGATIVE) /ul Ur Leukocyte Esterase 100 H (NEGATIVE) /ul Urine WBC 10-25 H (0-5) /hpf Laboratory Results WBC 9.7 K/mm3 (4.0-10.5) 06/08/18 12:05 RBC 3.91 M/mm3 (4.2-5.4) L 06/08/18 12:05 Hgb 10.2 gm/dL (12.5-16.0) L 06/08/18 12:05 Hct 32.5 % (37.0-47.0) L 06/08/18 12:05 MCV 83.1 fl (78-100) 06/08/18 12:05 MCH 26.1 pg (27-31) L 06/08/18 12:05 MCHC 31.4 g/dl (32-36) L 06/08/18 12:05 RDW 15.8 % (11.5-14.0) H 06/08/18 12:05 Plt Count 477 K/mm3 (150-450) H 06/08/18 12:05 MPV 9.2 fl (8-12.5) 06/08/18 12:05 Immature Gran % (Auto) 0.50 % (0.001-0.429) H 06/08/18 12:05 Immature Gran # (Auto) 0.05 K/mm3 (0.000-0.0310) H 06/08/18 12:05 Neutrophils % 73.0 % (42-75.0) 06/08/18 12:05 Lymphocytes % 12.9 % (20-51) L 06/08/18 12:05 Monocytes % 12.7 % (0.0-9) H 06/08/18 12:05 Eosinophils % 0.5 % (0.0-3.0) 06/08/18 12:05 Basophils % 0.4 % (0.0-1.0) 06/08/18 12:05 Nucleated RBC % 0.0 k/mm3 (0-1) 06/08/18 12:05 Neutrophils # 7.1 K/mm3 (1.3-6.0) H 06/08/18 12:05 Lymphocytes # 1.26 k/mm3 (1.5-3.5) L 06/08/18 12:05 Monocytes # 1.2 k/mm3 (0.0-1.0) H 06/08/18 12:05 Eosinophils # 0.1 k/mm3 (0.0-0.7) 06/08/18 12:05 Absolute Basophils 0.0 k/mm3 (0.0-0.1) 06/08/18 12:05 D-Dimer 1.35 ug/mL (0.19-0.49) H 06/08/18 12:05 Sodium 134 mmol/L (132-142) 06/08/18 12:05 Plasma Sodium 135 mmol/L (130-142) 06/08/18 12:05 Potassium 4.3 mmol/L (3.4-4.6) 06/08/18 12:05 Chloride 98 mmol/L (97-106) 06/08/18 12:05 Carbon Dioxide 25.2 mmol/L (24-32.6) 06/08/18 12:05 Anion Gap 15.1 mmol/L (6.8-13.8) H 06/08/18 12:05 BUN 13 mg/dL (3-23) 06/08/18 12:05 Creatinine 1.19 mg/dL (0.4-1.4) 06/08/18 12:05 Est GFR (Non-Af Amer) 47 mL/min (60-130) L 06/08/18 12:05 BUN/Creatinine Ratio 10.9 (9.0-21.6) 06/08/18 12:05 Random Glucose 189 mg/dL (70-110) H 06/08/18 12:05 Calcium 11.4 mg/dL (7.9-10.9) H 06/08/18 12:05 Calcium Adj for Albumin 12.3 mg/dL (8.4-10.2) H 06/08/18 12:05 Total Bilirubin 0.4 mg/dL (0.0-1.1) 06/08/18 12:05 AST 19 U/L (0-48) 06/08/18 12:05 ALT 30 U/L (19-67) 06/08/18 12:05 Alkaline Phosphatase 207 U/L (50-170) H 06/08/18 12:05 C-Reactive Prot, Quant 17.4 mg/dL (0.0-0.9) H 06/08/18 12:05 Total Protein 7.7 gm/dL (6.2-8.2) 06/08/18 12:05 Albumin 2.5 gm/dl (3.4-5.0) L 06/08/18 12:05 Amylase 32 U/L (25-115) 06/08/18 12:05 Lipase 117 U/L (73-393) 06/08/18 12:05 Urine Color Dark yellow 06/08/18 12:15 Urine Appearance Slightly cloudy (CLEAR) 06/08/18 12:15 Urine pH 6.0 pH (5.0-7.0) 06/08/18 12:15 Ur Specific [place] 1.010 SP.GR. (1.005-1.010) 06/08/18 12:15 Urine Protein Negative mg/dL (NEGATIVE) 06/08/18 12:15 Urine Glucose (UA) Negative mg/dL (NEGATIVE) 06/08/18 12:15 Urine Ketones Negative mg/dL (NEGATIVE) 06/08/18 12:15 Urine Blood 50 /ul (NEGATIVE) H 06/08/18 12:15 Urine Nitrate Negative (NEGATIVE) 06/08/18 12:15 Urine Bilirubin Negative mg/dl (NEGATIVE) 06/08/18 12:15 Urine Urobilinogen Normal EU/dl (NORMAL) 06/08/18 12:15 Ur Leukocyte Esterase 100 /ul (NEGATIVE) H 06/08/18 12:15 Urine RBC Trace /hpf (0-5) 06/08/18 12:15 Urine WBC 10-25 /hpf (0-5) H 06/08/18 12:15 Ur Epithelial Cells 0-5 /hpf (0-5) 06/08/18 12:15 Urine Bacteria Trace (NONE) 06/08/18 12:15 Urine Culture Comments Culture to follow 06/08/18 12:15 Assessment/Plan - Narrative Narrative: 1. Monitor through the night 2. Start Rocephin tonight 3. Check sedimentation rate C-reactive protein, CBC and BMP tomorrow morning 4. Surgical consultation for upper endoscopy to be done as outpatient 5. I'll speak with Dr. Bradford tomorrow to see what imaging he would recommend for this distal triceps mass. 6. Proceed with a VQ scan. I expect that the elevated d-dimer however is from the left posterior arm mass. 7. Probable discharge tomorrow - Assessment/Plan (1) Esophageal stenosis Problem: Acute (2) Bronchitis, acute Problem: Acute Qualifiers: Bronchitis organism: unspecified organism Qualified Code(s): J20.9 - Acute bronchitis, unspecified (3) Cellulitis of left upper extremity Problem: Acute (4) Elevated d-dimer Problem: Acute
[2018-06-08] MEDS ORDERED: HALOBETASOL PROPIONATE TP SCH (21:00)
[2018-06-08] MEDS ORDERED: ALBUTEROL SULFATE 2.5 MG/0.5 ML VIAL.NEB IH PRN (21:00)
[2018-06-08] MEDS ORDERED: PIOGLITAZONE HCL 15 MG TABLET PO SCH (21:00)
[2018-06-08] MEDS ORDERED: LOSARTAN POTASSIUM 50 MG TABLET PO SCH (21:00)
[2018-06-08] MEDS ORDERED: SIMVASTATIN 20 MG TABLET ONE (21:47)
[2018-06-09 05:36] LABS: Hematocrit 30.3 % (37.0-47.0); Hemoglobin 9.6 gm/dL (12.5-16.0); Mean Cell Volume 81.7 fl (78-100); Mean Corpuscular Hemoglobin 25.9 pg (27-31); Mean Corpuscular Hgb Conc 31.7 g/dl (32-36); Mean Platelet Volume 9.3 fl (8-12.5); Neutrophil % 67.5 % (42-75.0); Platelet Count 431 K/mm3 (150-450); Red Blood Count 3.71 M/mm3 (4.2-5.4); Red Cell Distribution Width 15.5 % (11.5-14.0); White Blood Count 8.9 K/mm3 (4.0-10.5)
[2018-06-09 05:50] LABS: Anion Gap 12.8 mmol/L (6.8-13.8); BUN/Creatinine Ratio 10.5 (9.0-21.6); Calcium * 10.9 mg/dL (7.9-10.9); Carbon Dioxide 25.5 mmol/L (24-32.6); Estimated Creat Clear 47.4; Potassium 4.3 mmol/L (3.4-4.6)
[2018-06-09 06:04] LABS: CRP 14.6 mg/dL (0.0-0.9)
[2018-06-09] MEDS ORDERED: ALBUTEROL SULFATE 2.5 MG/0.5 ML VIAL.NEB IH PRN (06:45)
[2018-06-09] MEDS ORDERED: LEVOTHYROXINE SODIUM 88 MCG TABLET PO SCH (07:00)
[2018-06-09] MEDS ORDERED: CHOLECALCIFEROL 1,000 UNIT CAPSULE PO SCH (09:00)
[2018-06-09] MEDS ORDERED: LOSARTAN POTASSIUM 50 MG TABLET PO SCH (09:00)
[2018-06-09] MEDS ORDERED: OMEGA-3 FATTY ACIDS 1 CAP CAPSULE PO SCH (09:00)
[2018-06-09] MEDS ORDERED: FERROUS SULFATE 325 MG TABLET PO SCH (09:00)
[2018-06-09] MEDS ORDERED: PIOGLITAZONE HCL 15 MG TABLET PO SCH (09:00)
[2018-06-09] MEDS ORDERED: MULTIVITAMINS 1 CAP CAPSULE PO SCH (09:00)
[2018-06-09] MEDS ORDERED: PANTOPRAZOLE SODIUM 40 MG TABLET.EC PO SCH (12:30)
--- NOTE | 2018-06-09 15:29 | DS ---
(1) Esophageal stenosis Problem: Acute (2) Bronchitis, acute Problem: Acute Qualifiers: Bronchitis organism: unspecified organism Qualified Code(s): J20.9 - Acute bronchitis, unspecified (3) Cellulitis of left upper extremity Problem: Acute (4) Elevated d-dimer Problem: Acute Description of Stay: This 73-year-old female was admitted through ER with difficulty with breathing and choking on mucus. In my history taking fine and she is having food getting stuck in her esophagus frequently and that she vomits. She is also vomiting about every midnight to purge mucus. No blood that she is aware of. She denies having chest pain with this. She also has a large mass in the left posterior arm there is a small swollen pot, febrile, and tender to palpation. I reviewed the recent CT scans and ultrasound with Dr. Bradford this morning. He moves this is an unresolved hematoma. This is 6 months old now and still has not resolved and has not been fully diagnosed. He suggested considering a oncological orthopedic surgeon for this. He also suggested that an MRI would probably be required. I will discuss that with Mary and set them up on an outpatient basis if she is agreeable. She is feeling better today. She had one choking spells morning he coughed up some mucus but other than that has had no difficulties today. Her disposition is improved. Procedures Performed: none Results and Findings: Pending Mircobiology Results 06/08/18 12:15 Urine,Clean Catch Urine Culture - Preliminary Beta Hemolytic Strep Lab Pending Results 06/08/18 12:05: WBC 9.7, RBC 3.91 L, Hgb 10.2 L, Hct 32.5 L, MCV 83.1, MCH 26.1 L, MCHC 31.4 L, RDW 15.8 H, Plt Count 477 H, MPV 9.2, Immature Gran % (Auto) 0.50 H, Immature Gran # (Auto) 0.05 H, Neutrophils % 73.0, Lymphocytes % 12.9 L, Monocytes % 12.7 H, Eosinophils % 0.5, Basophils % 0.4, Nucleated RBC % 0.0, Neutrophils # 7.1 H, Lymphocytes # 1.26 L, Monocytes # 1.2 H, Eosinophils # 0.1, Absolute Basophils 0.0 06/08/18 12:05: Sodium 134, Plasma Sodium 135, Potassium 4.3, Chloride 98, Carbon Dioxide 25.2, Anion Gap 15.1 H, BUN 13, Creatinine 1.19, Est GFR (Non-Af Amer) 47 L, BUN/Creatinine Ratio 10.9, Random Glucose 189 H, Calcium 11.4 H, Calcium Adj for Albumin 12.3 H, Total Bilirubin 0.4, AST 19, ALT 30, Alkaline Phosphatase 207 H, C-Reactive Prot, Quant 17.4 H, Total Protein 7.7, Albumin 2.5 L, Amylase 32, Lipase 117 06/08/18 12:05: D-Dimer 1.35 H 06/08/18 12:15: Urine Color Dark yellow, Urine Appearance Slightly cloudy, Urine pH 6.0, Ur Specific [place] 1.010, Urine Protein Negative, Urine Glucose (UA) Negative, Urine Ketones Negative, Urine Blood 50 H, Urine Nitrate Negative, Urine Bilirubin Negative, Urine Urobilinogen Normal, Ur Leukocyte Esterase 100 H, Urine RBC Trace, Urine WBC 10-25 H, Ur Epithelial Cells 0-5, Urine Bacteria Trace, Urine Culture Comments Culture to follow 06/09/18 05:10: WBC 8.9, RBC 3.71 L, Hgb 9.6 L, Hct 30.3 L, MCV 81.7, MCH 25.9 L, MCHC 31.7 L, RDW 15.5 H, Plt Count 431, MPV 9.3, Immature Gran % (Auto) 0.60 H, Immature Gran # (Auto) 0.05 H, Neutrophils % 67.5, Lymphocytes % 14.5 L, [place] cytes % 15.2 H, Eosinophils % 1.6, Basophils % 0.6, Nucleated RBC % 0.0, Neutrophils # 6.0, Lymphocytes # 1.29 L, Monocytes # 1.4 H, Eosinophils # 0.1, Absolute Basophils 0.1 06/09/18 05:10: ESR 119 H 06/09/18 05:10: Sodium 135, Plasma Sodium 136, Potassium 4.3, Chloride 101, Carbon Dioxide 25.5, Anion Gap 12.8, BUN 10, Creatinine 0.95, Est GFR (Non-Af Amer) 61 D, BUN/Creatinine Ratio 10.5, Random Glucose 152 H, Calcium 10.9, C- Reactive Prot, Quant 14.6 H Discharge Location: Home Disposition: Home self-care Condition: Stable Discharge Activity: Activity as tolerated Discharge Diet: General/regular food Referrals: Mirian Castro MD [Primary Care Provider] - Additional Patient Instructions (free text): -Please make TCM appointment unless care home discharge. Thank you! Anna @ [phone]. Prescriptions (Any new or edited meds): Omeprazole 40 mg PO DAILY #30 capsule. Complete Home Medications List: Complete Home Medication List: Ferrous Sulfate [Iron] 325 mg PO DAILY 01/18/13 ALPRAZolam [Xanax] 0.5 mg PO TID PRN 06/23/15 Levothyroxine Sodium [Synthroid] 88 mcg PO DAILY 06/23/15 Losartan Potassium [Cozaar] 25 mg PO DAILY 06/23/15 [place]-3 Fatty Acids/Fish Oil [Fish Oil 1,000 mg Capsule] 1 ea PO DAILY 06/23/15 Albuterol Sulfate/Ipratropium [Duoneb 2.5-0.5MG/3ML Soln] 3 ml IH Q6H PRN #60 nebu 10/07/16 cholecalciferol (vitamin D3) 1,000 unit capsule 1,000 unit PO DAILY 02/06/18 halobetasol propionate 0.05 % topical cream 1 applic TP BID 02/06/18 simvastatin 20 mg tablet 20 mg PO QPM 02/06/18 albuterol sulfate HFA 90 mcg/actuation aerosol inhaler 2 puff IH Q6H PRN #18 g 04/28/18 Blood Sugar Diagnostic [Blood Glucose Test] 1 each PRN PRN 06/08/18 Fluticasone/Salmeterol [Advair 250-50 Diskus] 1 each IH PRN PRN 06/08/18 Multivitamin [Poly-Vitamin] 1 each PO DAILY 06/08/18 Naproxen [Naprosyn] 500 mg PO BID PRN 06/08/18 Pioglitazone HCl 15 mg PO DAILY 06/08/18 Zolpidem Tartrate [Ambien] 10 mg PO HS PRN 06/08/18 Omeprazole 40 mg PO DAILY #30 capsule. 06/09/18 Amb Orders for Discharge: Consult Physician Location: None Selected
[2018-06-09 18:41] VITALS: BP 134/74
[2018-06-09] MEDS ORDERED: SIMVASTATIN 20 MG TABLET PO SCH (21:00)
== END 2018-06-09 18:56 | disposition home or self-care (01) ==
LOC: ER 11:17 → MS 11:17
PROVIDERS: ADMIT Family Medicine; ATTEND Family Medicine
DX: L03.114 Cellulitis of left upper limb
CPT/HCPCS: 36415; 71020; 71046; 78582; 80048; 80053; 81001; 82150; 83690; 85025; 85379; 85652; 86140; 87086; 90686; 93005; 99285; A9539; A9540; A9567; G0008; G0378